=== PATIENT | male | born 1995 | race Caucasian/White ===

== ENCOUNTER 2017-08-10 14:33 | Emergency (ER) | payer SELFPAY ==
[~2017-08-10] VITALS: Ht 200.7 cm; Wt 120.2 kg
[~2017-08-10 14:33] MED LIST: CLIN300C11 PO; HYDR-3812 PO
--- NOTE | 2017-08-10 15:12 | ED Back Pain ---
General Chief Complaint: Back Problems Stated Complaint: LOWER BACK PAIN Nursing Triage Note: ARRIVED VIA AMB WITH COMPLAINTS OF MID TO LOW BACK PAIN FOR FOUR DAYS. STATES HE FELT/HEARD A POP WHILE PICKING UP STICKS AND IMMEDIATELY FELT PAIN. PT STATES HE HAS TAKEN X7 TYLENOL EX TODAY ALONG WITH IBUPROFEN AND NOTHING IS HELPING. Nursing Sepsis Screen: No Definite Risk Source of Information: Patient Exam Limitations: No Limitations History of Present Illness Time Seen by Provider: 15:02 Initial Comments Patient presents to ER by private conveyance with chief complaint that he is having some back pain for the past 4 days. He says he was lifting something very heavy and felt a popping sensation in his back and then had a lot of pain. He says the pain is been tremendous and has not gotten better despite ibuprofen and Tylenol. He says he's had his back hurt in the past and went to the clinic in [place], [place] and was told that he had a slipped disc but has never had any imaging. He's had no falls, weakness but he does have some paresthesias in both legs at times and pain that radiates up his spine as well as down his spine. He's also had difficulty initiating urine stream and sometimes feels that he can't get all the urine out of his bladder. He's had no incontinence of bowel. Patient was lifting a tractor tire this morning and the pain got worse so he decided to come in and get it looked at. He does not have a primary care physician or 70 significant medical history or surgical history. Allergies and Home Medications Allergies Coded Allergies: Penicillins (Verified Allergy, Unknown, 02/12/16) codeine (Verified Allergy, Unknown, 02/12/16) Home Medications No Active Prescriptions or Reported Meds Constitutional: No chills, No fever EENTM: No ear discharge, No ear pain Respiratory: No cough, No short of breath Cardiovascular: No chest pain, No palpitations Gastrointestinal: No abdominal pain, No constipation, No diarrhea, No nausea, No vomiting Genitourinary: No discharge, No dysuria Musculoskeletal: see HPI, back pain, No neck pain Skin: No pruritus, No rash Psychiatric/Neurological: Denies Headache, Denies Numbness Past Eqruxrv-Hryqwo-Xfdobo Hx Patient Social History Alcohol Use: Denies Use Recreational Drug Use: No Smoking Status: Current Everyday Smoker Recent Foreign Travel: No Contact w/Someone Who Travel: No Recent Infectious Disease Expo: No Immunizations Up To Date Tetanus Booster (TDap): Unknown Surgeries History of Surgeries: Yes Surgeries: Tonsillectomy Respiratory History of Respiratory Disorde: No Cardiovascular History of Cardiac Disorders: No Neurological History of Neurological Disord: No Reproductive System Hx Reproductive Disorders: No Gastrointestinal History of Gastrointestinal Di: No Musculoskeletal History of Musculoskeletal Dis: Yes (SLIPPED DISK) Musculoskeletal Disorders: Chronic Back Pain Endocrine History of Endocrine Disorders: No HEENT History of HEENT Disorders: No Cancer History of Cancer: No Psychosocial History of Psychiatric Problem: No Integumentary History of Skin or Integumenta: No Blood Transfusions History of Blood Disorders: No Family Medical History Significant Family History: No Pertinent Family Hx Physical Exam Vital Signs Vital Sign - Last 12Hours 08/10/17 14:40 Temp 98.0 Pulse 72 Resp 18 B/P (MAP) 179/97 Pulse Ox 98 Capillary Refill : Less Than 3 Seconds General Appearance: WD/WN, Mild Distress HEENT: PERRL/EOMI, Pharynx Normal Neck: Full Range of Motion, Normal Inspection, Non Tender, Supple Cardiovascular: Regular Rate, Rhythm, No Edema, No Murmur Respiratory: Chest Non Tender, Lungs Clear Peripheral Pulses: 2+ Dorsalis Pedis (R), 2+ Left Dors-Pedis (L) Gastrointestinal: Non Tender, Soft Back: Normal Inspection, Vertebral Tenderness (midline lumbar vertebral tenderness) Extremity: Normal Inspection, Non Tender Neurologic/Psychiatric: Alert, Oriented x3, No Motor/Sensory Deficits, Other ( bilateral deep tendon patellar reflexes 2 out of 4) Skin: Normal Color, Warm/Dry Progress/Results/Core Measures Results/Orders My Orders Orders - FILI VASQUEZ Ketorolac Injection (Toradol Injection) (08/10/17 15:15) Mri Lumbar Spine W/O Contrast (08/10/17 15:06) Fentanyl Injection (Sublimaze Injection (08/10/17 16:45) Medications Given in ED Current Medications Medications Dose Ordered Sig/Francisca Route Start Time Stop Time Status Last Admin Dose Admin Fentanyl Citrate 50 mcg ONCE ONCE IVP 08/10/17 16:45 08/10/17 16:46 DC 08/10/17 16:50 50 MCG Ketorolac Tromethamine 15 mg ONCE ONCE IVP 08/10/17 15:15 08/10/17 15:16 DC 08/10/17 15:27 15 MG Vital Signs/I&O Vital Sign - Last 12Hours 08/10/17 14:40 Temp 98.0 Pulse 72 Resp 18 B/P (MAP) 179/97 Pulse Ox 98 Blood Pressure Mean: 124 Progress Note : Time: 15:11 Progress Note Urinary hesitancy is a red flag for cauda equina versus neurogenic damage. We will obtain MRI of his lumbar spine and give him pain meds. Diagnostic Imaging Diagonstic Imaging: MRI Plain Films/CT/US/NM/MRI: other (lumbar spine) Comments VIA [facility] [place], [place] NAME: PAPITO SHEARER [facility] REC#: [id number] PT STATUS: REG ER : 1995 PHYSICIAN: FILI VASQUEZ MD ADMIT DATE: 08/10/17/ER Draft Date of Exam:08/10/17 MRI LUMBAR SPINE W/O CONTRAST PROCEDURE: MRI lumbar spine. TECHNIQUE: Multiplanar, multisequence MRI of the lumbar spine was performed without contrast. INDICATION: Back pain. FINDINGS: Lumbar spine is normal in alignment. No bone marrow edema to indicate fracture. No marrow replacing process. Intervertebral disc space heights are well preserved. Mild disc desiccation at L5-S1 without significant disc herniation. No spinal stenosis or neuroforaminal narrowing within the lumbar spine. Conus terminates at an appropriate level and the distal cord is normal in signal and size. No abnormal clumping of the intrathecal nerve roots. IMPRESSION: 1. Minimal degenerative disc desiccation of L5-S1 without significant annular tear or disc herniation. 2. Otherwise, normal lumbar spine MRI. Dictated on workstation # [id number] Dict: 08/10/17 1619 Trans: 08/10/17 1622 [facility] [id number] Interpreted by: TIFFANY MANSFIELD MD Electronically signed by: Reviewed: Reviewed by Me Departure Impression Impression: Primary Impression: Back strain Qualified Codes: S39.012A - Strain of muscle, fascia and tendon of lower back , initial encounter Additional Impression: Back pain Qualified Codes: M54.5 - Low back pain Disposition: 01 HOME, SELF-CARE Condition: Stable Departure-Patient Inst. Decision time for Depature: 16:55 Referrals: NO,LOCAL PHYSICIAN (PCP/Family) Primary Care Physician Patient Instructions: Low Back Pain (DC) Add. Discharge Instructions: If it's not being controlled with your other pain medicines you may use the hydrocodone one tablet every 6 hours. If you're using hydrocodone will cause constipation see should also have some kind of laxative on board such as MiraLAX or Dulcolax daily. This medicine will also make you tired to do not mix it with alcohol and do not drive or operate heavy machinery while under the influence of this medicine. I want you to be on an NSAID such as Naprosyn 500 mg twice a day for the next 2 weeks. Use heating pads, icy hot, Biofreeze, ice on your back as needed. You may also use the muscle relaxant every 8 hours as needed for back spasm. You may also consult with a chiropractor. If your back pain is not improving in a couple weeks you should follow up with a primary care physician for possible evaluation, management and referral to physical therapy. Typically back pain takes about 6-8 weeks to completely resolve. Use good lifting ergonomics. All discharge instructions reviewed with patient and/or family. Voiced understanding. Scripts Naproxen (Naprosyn) 500 Mg Tablet 500 MG PO BID for 14 Days, #28 TAB 0 Refills Prov: FILI VASQUEZ 08/10/17 Prednisone (Prednisone) 20 Mg Tab 40 MG PO DAILY for 5 Days, #10 TAB 0 Refills Prov: FILI VASQUEZ 08/10/17 Cyclobenzaprine HCl (Cyclobenzaprine HCl) 10 Mg Tablet 10 MG PO Q8H Y for SPASMS, #15 TAB 0 Refills Prov: FILI VASQUEZ 08/10/17 Hydrocodone/Acetaminophen (Hydrocodon -Acetaminophen 5-325) 1 Each Tablet 1 EACH PO Q6H Y for BREAKTHROUGH PAIN, #15 TAB 0 Refills Prov: FILI VASQUEZ 08/10/17 Work/School Note: Work Release Form Date Seen in the Emergency Department: Aug 10, 2017 Return to Work: Aug 12, 2017 Restrictions: No Restrictions FILI VASQUEZ Aug 10, 2017 15:11
[2017-08-10] MEDS: KETOROLAC 30 MG/ML VIAL IVP ONE (15:27)
--- NOTE | 2017-08-10 16:23 | Diagnostic Imaging Report ---
PROCEDURE: MRI lumbar spine. TECHNIQUE: Multiplanar, multisequence MRI of the lumbar spine was performed without contrast. INDICATION: Back pain. FINDINGS: Lumbar spine is normal in alignment. No bone marrow edema to indicate fracture. No marrow replacing process. Intervertebral disc space heights are well preserved. Mild disc desiccation at L5-S1 without significant disc herniation. No spinal stenosis or neuroforaminal narrowing within the lumbar spine. Conus terminates at an appropriate level and the distal cord is normal in signal and size. No abnormal clumping of the intrathecal nerve roots. IMPRESSION: 1. Minimal degenerative disc desiccation of L5-S1 without significant annular tear or disc herniation. 2. Otherwise, normal lumbar spine MRI. Dictated by: Dictated on workstation # [id number]
[2017-08-10] MEDS: fentaNYL INJECTION 100 MCG/2 ML AMP IVP ONE (16:50)
[2017-08-10] MEDS ORDERED: PRD20T PO (16:59)
[2017-08-10] MEDS ORDERED: NAPR500T PO (16:59)
[2017-08-10] MEDS ORDERED: CYCL10TA9 PO (16:59)
[2017-08-10] MEDS ORDERED: HYDR-3812 PO (16:59)
[2017-08-10] MEDS: ORPHENADRINE 60 MG/2 ML (NORFLEX) AMP IM ONE (17:04)
[2017-08-10 17:07] VITALS: BP 140/87
== END 2017-08-10 17:07 | disposition home or self-care (01) ==
LOC: EDUNIT# 14:33 → ER 14:34
DX: S39.012A Strain of muscle, fascia and tendon of lower back, initial encounter (principal); Z90.89 Acquired absence of other organs; X50.0XXA Overexertion from strenuous movement or load, initial encounter
CPT/HCPCS: 72148; 99284

== ENCOUNTER 2019-09-03 21:11 | Emergency (ER) | payer SELFPAY ==
[~2019-09-03] VITALS: Ht 200.6 cm; Wt 113.4 kg
[~2019-09-03 21:11] MED LIST changes: +ACHD5005 PO; +CYCL10TA9 PO; -HYDR-3812 PO; +NAPR-1071 PO; +PRD20T PO
[2019-09-03] MEDS ORDERED: RX-TRIMETH/SULFA. 160-800 MG (BACTRIM DS) TAB PPK#2 PO STA (22:39)
[2019-09-03] MEDS ORDERED: RX-TRAMADOL 50 MG (ULTRAM) TAB PPK#4 PO STA (22:39)
[2019-09-03] MEDS ORDERED: SULF1TAB35 PO (22:45)
[2019-09-03] MEDS ORDERED: CLINDAMYCIN 150 MG (CLEOCIN) CAP PO ONE (22:45)
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
[2019-09-03 22:53] VITALS: BP 161/88
--- NOTE | 2019-09-04 06:29 | Diagnostic Imaging Report ---
INDICATION: Pain COMPARISON: 02/12/2016 TECHNIQUE: 3 radiographs of the right hand dated 09/03/2019 FINDINGS: Chronic healed fracture deformity of the neck of the 5th metacarpal is noted. No acute fracture or dislocation. No destructive osseous process. Joint spaces are well-maintained. Mild focal soft tissue swelling is noted about the 3rd digit PIP joints. No suspicious radiopaque foreign body. IMPRESSION: No acute osseous abnormality. Focal soft tissue swelling associated with the 3rd digit PIP joint without suspicious radiopaque foreign body. Dictated by: Dictated on workstation # [id number]
== END 2019-09-03 22:53 | disposition home or self-care (01) ==
LOC: EDUNIT# 21:11 → ER 21:14
DX: S62.612A Displaced fracture of proximal phalanx of right middle finger, initial encounter for closed fracture (principal); L03.011 Cellulitis of right finger; F17.210 Nicotine dependence, cigarettes, uncomplicated; Z90.89 Acquired absence of other organs; Z88.0 Allergy status to penicillin; Z88.5 Allergy status to narcotic agent; W22.8XXA Striking against or struck by other objects, initial encounter
CPT/HCPCS: 73130

== ENCOUNTER 2020-04-24 19:21 | Emergency (ER) | payer SELFPAY ==
[~2020-04-24] VITALS: Ht 200 cm; Wt 111.0 kg
[~2020-04-24 19:21] MED LIST changes: +SULF1TAB35 PO
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
--- NOTE | 2020-04-24 20:39 | Diagnostic Imaging Report ---
EXAMINATION: Right hand 3 views. HISTORY: Fall. COMPARISON: 09/03/2019. FINDINGS: There is a nondisplaced fracture at the base of the right thumb distal phalanx. There is overlying soft tissue swelling. No other fracture is seen. The joint spaces are normal. IMPRESSION: Nondisplaced fracture of the base of the right thumb distal phalanx. Dictated by: Dictated on workstation # [id number]
[2020-04-24] MEDS ORDERED: TRM50T PO (21:01)
[2020-04-24 21:25] VITALS: BP 154/91
== END 2020-04-24 21:25 | disposition home or self-care (01) ==
LOC: EDUNIT# 19:21 → ER 19:22
DX: S00.11XA Contusion of right eyelid and periocular area, initial encounter (principal); S62.521A Displaced fracture of distal phalanx of right thumb, initial encounter for closed fracture; W19.XXXA Unspecified fall, initial encounter; Z90.89 Acquired absence of other organs; M54.9 Dorsalgia, unspecified
CPT/HCPCS: 29130; 73130